=== PATIENT | male | born 1960 | race Caucasian/White ===

== ENCOUNTER 2020-04-20 07:45 | Day surgery (SDC) | payer OTHER, SELFPAY ==
--- NOTE | 2020-04-19 10:14 | HO.ANESPROP2 ---
Documented by User: Tali Pitts 04/19/20 10:14 HPI - Anesthesia Eval Consult details Narrative: 60yo M for Upper Endoscopy and Colonoscopy [facility] Past Medical History Medical History Diabetes Elevated liver function tests GERD (gastroesophageal reflux disease) History of alcohol abuse Surgical History Surgical History Hx of colonoscopy Social History Social History Smoking Status: Current some day smoker Use of substances other than those prescribed or required for medical reasons: Yes Substance Use Frequency: Daily Advance Directives: No Advance Directives Information Provided: No Meds Allergies Allergy/AdvReac Type Severity Reaction Status Date / Time metformin AdvReac Diarrhea Verified 04/13/20 15:06 steroids AdvReac Agitated Uncoded 04/13/20 15:06 Home Medications Medication Instructions Recorded Confirmed Type famotidine 20 mg PO BID 04/13/20 04/13/20 History folic acid 1 mg PO DAILY 04/13/20 04/13/20 History rosuvastatin 20 mg PO DAILY 04/13/20 04/13/20 History thiamine HCl (vitamin B1) 100 mg PO DAILY 04/13/20 04/13/20 History Exam Exam Date and Time: April 19, 2020 1014 Assessment and Plan Assessment Anesthesia Assessment: Chart Reviewed Documented by User: Donaldo Nelson 04/20/20 08:42 [facility] Past Medical History Medical History Diabetes Elevated liver function tests GERD (gastroesophageal reflux disease) History of alcohol abuse Surgical History Surgical History Hx of colonoscopy Social History Social History Smoking Status: Current some day smoker Use of substances other than those prescribed or required for medical reasons: Yes Substance Use Frequency: Daily Advance Directives: No Advance Directives Information Provided: No Meds Allergies Allergy/AdvReac Type Severity Reaction Status Date / Time metformin AdvReac Diarrhea Verified 04/13/20 15:06 steroids AdvReac Agitated Uncoded 04/13/20 15:06 Home Medications Medication Instructions Recorded Confirmed Type famotidine 20 mg PO BID 04/13/20 04/13/20 History folic acid 1 mg PO DAILY 04/13/20 04/13/20 History rosuvastatin 20 mg PO DAILY 04/13/20 04/13/20 History thiamine HCl (vitamin B1) 100 mg PO DAILY 04/13/20 04/13/20 History Exam Airway Mallampati Class: II TM Dist: >3cm Neck ROM: Full Denture: Upper and Lower Heart: [id number] Lungs: cta b/l Assessment and Plan Assessment Anesthesia Assessment: Anesthesia Plan Discussed, Smoking Cess. Discussed and PAT Visit Final Anesthetic Review NPO: Yes ASA Class: III Final Preanesthetic Review: No Changes in Pt Med Stat, Meds/Allgs Chart Reviewed, Consent Obtained/Reviewed and Anes Risks/Benef Reviewed Patient Risk: Intermediate Procedure Risk: Low Assessment/Block/Sedation in SS: Assess/Block/Sedation-SS Anesthetic Plan Anesthetic Plan: MAC:
[2020-04-20 07:56] VITALS: BP 112/67; PULSE 79; RESP 18; TEMP 36.5; O2SAT 98; BMI 21.2
[2020-04-20] MEDS: Lactated Ringers 1,000 ML 100 ML IVCONT (08:07)
[2020-04-20 08:14] LABS: Glucose, Whole Blood 131 mg/dL (60-115)
--- NOTE | 2020-04-20 08:36 | MHC.SHP ---
Pre-Procedural Eval Section A The patient is an INPATIENT: No Changes since office visit: No Cold of Flu in the past 2 weeks, No New Medical Problems, No Changes in Medication and No Patient answered all questions The History & Physical has been completed within 30 days and I have reviewed it.: Yes Section B Chief Complaint: reflux disease with esophagitis, Allergies: Allergies Allergy/AdvReac Type Severity Reaction Status Date / Time metformin AdvReac Diarrhea Verified 04/13/20 15:06 steroids AdvReac Agitated Uncoded 04/13/20 15:06 Plan Patient has been examined and remains a candidate for the planned procedure
[2020-04-20 10:19] VITALS: BP 85/85; PULSE 73; RESP 12; TEMP 36.4; O2SAT 97
[2020-04-20 10:35] VITALS: BP 88/56; PULSE 58; RESP 14; TEMP 36.4; O2SAT 95
--- NOTE | 2020-04-20 10:49 | OP_ITS ---
SURGEON: Brooks Gonzalez MD INDICATIONS: 1. Gastroesophageal reflux disease. 2. Prior history of adenomatous colon polyps. PREOPERATIVE DIAGNOSIS: POSTOPERATIVE DIAGNOSIS: PROCEDURE PERFORMED: ESTIMATED BLOOD LOSS: COMPLICATIONS: ANESTHESIA: Monitored anesthesia care. ASSISTANTS: SPECIMENS: PROCEDURES PERFORMED: 1. Upper endoscopy with biopsy. 2. Colonoscopy to the terminal ileum with snare polypectomy. DESCRIPTION OF PROCEDURE: History and physical performed. The risks and benefits of the procedure were explained to the patient. Informed consent was obtained. The patient was placed in the left lateral decubitus position. The Olympus video gastroscope was introduced into the esophagus, stomach, and duodenum. Examination was performed. The scope was removed and he was repositioned for colonoscopy. A digital rectal exam was performed and was found to be normal. The Olympus pediatric video colonoscope was introduced into the rectum and advanced to the cecum without difficulty. The cecum was identified by transillumination, palpation, and identification of ileocecal valve. Examination was performed and the scope was removed. He tolerated both procedures well and was returned to the recovery area in stable condition. FINDINGS: UPPER ENDOSCOPY: Esophagus: The esophagus was normal. The EG junction was biopsied. Stomach: The stomach showed no evidence of masses or ulcers. There was antral gastritis with erythema and edema, but no ulceration. Biopsies were obtained from the antrum. Duodenum: The bulb and second portion were normal. Biopsies were obtained from the EG junction. COLONOSCOPY: The terminal ileum showed nonspecific mild ileitis. The visualized colonic mucosa was normal. At 60 cm, there was an 8 mm polyp, which was snared and recovered via suction. There was mild diverticulosis. The previously identified polyp sites were clear at the site of Kalani ink injection in the splenic flexure with no evidence of recurrent adenomas. Retroflexed examination showed small internal hemorrhoids. IMPRESSION: 1. Gastritis. 2. Colon polyp. RECOMMENDATIONS: Follow up the biopsy results. MD VLADISLAV Briseno/NEETA / [phone]
[2020-04-20 10:51] VITALS: BP 109/68; PULSE 65; RESP 20; TEMP 36.4; O2SAT 97
--- NOTE | 2020-04-20 11:12 | PM.OP ---
Brief Operative Note Date of Service: 04/20/20 Pre-op diagnosis: gerd, hx polyps Post-op diagnosis: same (gastritis, colon polyp) Procedure: egd, colonoscopy Surgeon: Brooks Gonzalez Anesthesia: MAC Estimated blood loss (mL): 5 Pathology: none sent (antrum and egj biopsies, polyp 60 cm) Condition: stable Disposition: PACU
--- NOTE | 2020-04-20 11:15 | HO.POSTANES ---
Post Anesthesia Evaluation Post Anesthesia Evaluation Vital Signs: Vital Signs Temp Pulse Resp BP Pulse Ox 04/20/20 10:51 97.6 F 65 20 109/68 97 04/20/20 10:35 97.6 F 58 14 88/56 L 95 04/20/20 10:19 97.6 F 73 12 85/85 L 97 04/20/20 07:56 97.7 F 79 18 112/67 98 Anesthesia: Monitored Mental Status: Awake Pain Control: Satisfactory Nausea/Vomiting: None Hydration: Adequate Anesthesia-Related Issues: No Anes. Related Issues
== END 2020-04-20 11:24 | disposition home or self-care (01) ==
PROVIDERS: Visit Provider Internal Medicine Gastroenterology
PROC: (CPT 43239; principal; 2020-04-20 08:30)
DX: K21.00 Gastro-esophageal reflux disease with esophagitis, without bleeding (principal); K29.70 Gastritis, unspecified, without bleeding; K63.5 Polyp of colon; Z86.010 Personal history of colon polyps; E11.9 Type 2 diabetes mellitus without complications
CPT/HCPCS: 43239; 45385; 82947; 88305; 88342; J2250; J3010

== ENCOUNTER → 2021-03-03 12:47 | Outpatient (BNVA) | payer OTHER, SELFPAY | PROVIDERS: PCP Internal Medicine Endocrinology, Diabetes & Metabolism; Visit Provider Surgery | DX: D17.0 Benign lipomatous neoplasm of skin and subcutaneous tissue of head, face and neck (principal); E11.9 Type 2 diabetes mellitus without complications; R94.5 Abnormal results of liver function studies; F10.21 Alcohol dependence, in remission; Z88.8 Allergy status to other drugs, medicaments and biological substances | CPT/HCPCS: 99202 ==

== ENCOUNTER 2024-09-09 17:22 | Emergency (ER) | payer OTHER, SELFPAY ==
--- NOTE | ~2024-09-09 | CT_ITS ---
CLINICAL HISTORY: coughing. Pneumonia? CT chest without IV contrast. COMPARISON: None FINDINGS: Visualized thyroid is unremarkable. No supraclavicular or axillary lymphadenopathy. Ascending aorta and main pulmonary artery are normal in caliber. No pericardial effusion. Coronary artery calcifications present within the LAD. Aortic annular calcifications. Normal esophagus. No mediastinal lymphadenopathy. No pleural effusion. Linear atelectasis versus scarring within the lingula. Gpbo-px-xwhrnhac upper lobe predominant centrilobular emphysema. Trachea and central airways are clear. Mild bronchial wall thickening. Calcified granuloma in the right lower lobe. Hepatic steatosis. No acute fracture or suspicious osseous abnormality. IMPRESSION: 1. Mild diffuse bronchial wall thickening can be associated with an infectious or inflammatory bronchitis. 2. Zovd-st-ynqlizlc emphysema. 3. Hepatic steatosis. This document has been electronically signed by: William Colorado MD on 09/09/2024 19:32:45
--- NOTE | 2024-09-09 17:29 | ECG_ITS ---
Test Reason : SOB Blood Pressure : */* mmHG Vent. Rate : 96 BPM Atrial Rate : 96 BPM P-R Int : 132 ms QRS Dur : 84 ms QT Int : 348 ms P-R-T Axes : 70 -2 62 degrees QTcB Int : 439 ms Normal sinus rhythm Possible Inferior infarct , age undetermined ST & T wave abnormality, consider anterior ischemia Abnormal ECG When compared with ECG of 01-Aug-2004 13:20, Vent. rate has increased by [address] now depressed in Anterior leads T wave inversion now evident in Anterior leads Referred By: Aba Avila Electronically Signed By: VENU BANUELOS
[2024-09-09 17:40] VITALS: BP 134/80; PULSE 105; RESP 20; TEMP 36.6; O2SAT 96; BMI 21.3
--- NOTE | 2024-09-09 17:44 | ED_ITS ---
HPI - General Adult General Chief complaint: Dyspnea Stated complaint: SOB/SPO2 84% Time Seen by Provider: 09/09/24 22:19 Source: patient and family Mode of arrival: ambulatory Limitations: no limitations History of Present Illness ED Provider: DR. Hanson HPI narrative: 64-year-old male walked into our emergency department for evaluation of few days of cough with clear sputum, no fever, no chills, patient has a long history of cigarette smoking with a no known lung disease, no fever, no chills, no exposure to sick contacts, no recent travel, no lower extremity swelling or tenderness, patient in the ED feels no shortness of breath, O2 sat is within normal.. Patient admitted to drinking alcohol on a daily basis, LFTs was found to be high patient is declining ultrasound of the abdomen for further evaluation. Related Data Home Medications ?Medication ?Instructions ?Recorded ?Confirmed famotidine 20 mg tablet 20 mg PO BID 04/13/20 04/13/20 folic acid 1 mg tablet 1 mg PO DAILY 04/13/20 04/13/20 rosuvastatin 20 mg tablet 20 mg PO DAILY 04/13/20 04/13/20 thiamine HCl (vitamin B1) 100 mg 100 mg PO DAILY 04/13/20 04/13/20 tablet Previous Rx's ?Medication ?Instructions ?Recorded azithromycin 250 mg tablet See Rx Instructions PO .COMPLEX #6 09/09/24 (Zithromax Z-Mitesh) tabs Allergies Allergy/AdvReac Type Severity Reaction Status Date / Time metformin AdvReac Diarrhea Verified 09/09/24 17:42 steroids AdvReac Agitated Uncoded 04/13/20 15:06 Review of Systems 2 Review of Systems: All other systems are reviewed and are negative Constitutional: Reports as per HPI and Reports no additional constitutional complaints Eyes: Reports as per HPI and Reports no additional eye complaints Reports system reviewed and no additional complaints, except as documented Cardiovascular: Reports as per HPI and Reports no additional cardiovascular complaints Respiratory: Reports as per HPI and Reports no additional respiratory complaints Gastrointestinal: Reports as per HPI and Reports no additional gastrointestinal complaints Genitourinary: Reports no additional female genitourinary complaints Musculoskeletal: Reports no additional musculoskeletal complaints Skin/Breast: Reports system reviewed and no additional complaints, except as docu Psychiatric: Reports no additional psychiatric complaints Endocrine: Reports no additional endocrine complaints Hematologic/Lymphatic: Reports no additional hematologic/lymphatic complaints Allergic/Immunologic: Reports no additional allergic/immunologic complaints Reports system reviewed and no additional complaints, except as documented and Reports Abnormal speech present [facility] Past Medical History Medical History GERD (gastroesophageal reflux disease) Elevated liver function tests History of alcohol abuse Diabetes Surgical History History of endoscopy Hx of colonoscopy Social History Social History Advance Directives: No Advance Directives Information Provided: No Physical Exam ED Vital Signs: Vital Signs - 24 hr 09/09/24 17:40 09/09/24 21:25 09/09/24 22:29 Temperature 97.8 F 98.2 F 98.4 F Pulse Rate 105 H 90 98 Respiratory Rate 20 18 20 Blood Pressure 134/80 124/87 128/80 Pulse Oximetry 96 96 97 Oxygen Delivery Method Room Air Room Air Room Air 09/09/24 22:48 Temperature 98.4 F Pulse Rate 98 Respiratory Rate 20 Blood Pressure 128/80 Pulse Oximetry 97 Oxygen Delivery Method Room Air BMI result Body Mass Index 21.3 Vital signs have been reviewed and appear to be correct. Blood pressure elevated. Heart rate normal. Respiratory rate normal. Temperature normal. Oxygen saturation normal. Appearance: Alert. Oriented X3. No acute distress. Head: Normal external exam. Normocephalic. Atraumatic. No Pratt signs noted. No raccoon eyes noted Eyes: PERRLA. EOMI. Conjunctiva and sclera normal. Eyelids normal. ENT: TM's Normal. Pharynx normal. Uvula midline. Moist mucous membranes. No trismus noted. No drooling noted. No muffled voice noted. Neck: Normal inspection. Neck supple. FROM. No adenopathy. Thyroid Normal. No meningeal signs. No neck mass noted. CVS: Normal heart rate and rhythm. Heart sound normal. No murmurs noted. Pulses normal throughout. Respiratory: No respiratory distress. Painless inspiration. Breath sounds normal. No wheezes/rales/rhonchi noted. Chest nontender. No accessory muscle usage noted or decreased air movement noted. Abdomen: Soft and nontender. Bowel sounds normal in all 4 quadrants. No distention noted. No organomegaly noted. No visible injury noted. Back: No CVA tenderness. Full range of motion noted. Skin: Skin warm and dry. Normal skin color. Normal skin turgor. No rashes/lesions/lacerations noted. Extremities: No lower extremity edema. Extremities exhibit normal range of motion. Extremities nontender. Neuro: Oriented X 3. Cranial nerve exam: II-XII are grossly intact No motor deficit. No sensory deficit. Reflexes normal. Course Course Course Narrative: RME: 54-year-old male presents to ED for coughing, chest pain, shortness of breath for the past couple of days. Patient is a smoker. Patient is not hypoxic. Vital signs stable. Labs EKG chest x-ray ordered Reevaluation(s) Reevaluation #1: History of cigarette smoking for 4 years, drinking alcohol on daily basis. CT of the chest is consistent with infectious versus inflammatory bronchitis otherwise no definitive lung infiltrate. Mild to moderate emphysema and hepatic steatosis. Chronic elevation of LFTs probably secondary to alcohol use patient is refusing hepatic ultrasound in the emergency department. Mild hyponatremia. Time: 22:35 Medical Decision Making Differential Diagnosis Differential Diagnoses: The differential diagnosis associated with the presentation includes (Pneumonia, pneumothorax, pleural effusion, bronchitis, pulmonary embolism, ACS, alcoholic hepatitis, anemia, electrolyte derangement.) Admission/Observation Consideration of admission/observation: Escalation of care including admission/observation considered Lab Data MDM Lab Attestation statement: I reviewed the patient's lab results. 09/09/24 17:56 09/09/24 17:56 Labs: Lab Results 09/09/24 09/09/24 Range/Units 17:55 17:56 WBC 6.9 (4.8-10.8) X10*3/uL RBC 4.38 L (4.60-5.80) X10*6/uL Hgb 16.6 (14.0-18.0) g/dl Hct 45.2 (42.0-52.0) % MCV 103.2 H (80.0-98.0) fL MCH 37.9 H (27.0-33.0) pg MCHC 36.7 H (31.0-36.0) g/dl RDW 12.9 (11.0-16.0) % Plt Count 176 (160-400) X10*3/uL MPV 10.4 (9.4-12.4) fL Immature Gran % (Auto) 0.4 (0.0-0.4) % Neut % (Auto) 68.3 (45-73) % Lymph % (Auto) 22.5 (20-40) % [place] % (Auto) 7.7 (2-11) % Eos % (Auto) 0.4 (0-4) % Baso % (Auto) 0.7 (0-2) % Lymph # (Auto) 1.6 (1.2-4.9) X10*3/uL [place] # (Auto) 0.5 (0.1-1.2) X10*3/uL Eos # (Auto) 0.0 (0.0-0.4) X10*3/uL Baso # (Auto) 0.1 (0.0-0.2) X10*3/uL Abs Immat Gran (auto) 0.03 (0.00-0.03) X10*3/uL Absolute Neuts (auto) 4.7 (2.0-8.3) x10*3/uL Absolute Nucleated RBC 0.000 (0.0-0.012) X10*3/uL Nucleated RBC % (auto) 0.0 (0.0-0.2) /100WBC PT 10.7 L (10.9-12.4) SEC INR 0.9 (0.9-1.1) APTT 30.2 (26.0-36.8) SEC Sodium 130 L (135-145) mmol/L Potassium 4.2 (3.3-5.1) mmol/L Chloride 93 L (96-108) mmol/L Carbon Dioxide 27 (22-29) mmol/L Anion Gap 14 (12-20) BUN 8 L (9-16) mg/dL Creatinine 0.87 (0.5-1.4) mg/dL Estim Creat Clear Calc 86.4 Estimated GFR > 60 Random Glucose 146 H (60-115) mg/dL Calcium 9.4 (8.4-10.2) mg/dL Total Bilirubin 2.2 H (0.0-1.0) mg/dL AST 146 H (5-37) U/L ALT 67 H (0-40) U/L Alkaline Phosphatase 122 H (39-117) U/L Troponin I High Sens < 2.7 (<3.5-35.0) ng/L B-Natriuretic Peptide 36 (<100) pg/mL Total Protein 7.3 (6.5-8.0) g/dL Albumin 4.0 (3.5-5.0) g/dL Influenza Type A (PCR) NEGATIVE (Negative) Influenza Type B (PCR) NEGATIVE (Negative) RSV RNA Qual (PCR) NEGATIVE (Negative) SARS-CoV-2 RNA (RT-PCR) NEGATIVE (Negative) Independent Interpretation I performed an independent interpretation of an: CT Scan (Chest:. Mild diffuse bronchial wall thickening can be associated with an infectious or inflammatory bronchitis. 2. Feou-bm-dpumlrbg emphysema. 3. Hepatic steatosis.) Radiology Impression Discussion of test interpretation with radiology: I have reviewed the radiologist's reading. Discharge Plan Discharge Clinical Impression: Acute bronchitis, Elevated liver function tests Patient Disposition: Home, Self-Care Instructions: Acute Bronchitis (ED) Prescriptions: New azithromycin [Zithromax Z-Mitesh] 250 mg tablet See Rx Instructions .ROUTE .COMPLEX Qty: 6 0RF Rx Instructions: For 250 mg dose pack: take 500 mg today (day 1), then 250 mg for 4 days (days 2-5) No Action thiamine HCl (vitamin B1) 100 mg Tablet 100 mg PO DAILY famotidine 20 mg Tablet 20 mg PO BID folic acid 1 mg Tablet 1 mg PO DAILY rosuvastatin 20 mg Tablet 20 mg PO DAILY Referrals: Herb Serrano MD [Primary Care Provider] - Interventions: ED Discharge Assessment Last Done: 09/09/24 22:48 Discharge Date/Time: 09/09/24 22:48 Print Language: Lao
[2024-09-09 18:17] LABS: MANUAL DIFF FLAG NO
[2024-09-09 18:21] LABS: Basophils Absolute Auto 0.1 X10*3/uL (0.0-0.2); Basophils Percent Auto 0.7 % (0-2); Eosinophils Percent Auto 0.4 % (0-4); Hematocrit 45.2 % (42.0-52.0); Hemoglobin 16.6 g/dl (14.0-18.0); Imm Gran Abs Auto 0.03 X10*3/uL (0.00-0.03); Imm Gran Pct Auto 0.4 % (0.0-0.4); Lymphocytes Absolute Auto 1.6 X10*3/uL (1.2-4.9); Lymphocytes Percent Auto 22.5 % (20-40); Mean Corpuscular HGB Conc 36.7 g/dl (31.0-36.0); Mean Corpuscular Hemoglobin 37.9 pg (27.0-33.0); Mean Corpuscular Volume 103.2 fL (80.0-98.0); Mean Platelet Volume 10.4 fL (9.4-12.4); Monocytes Absolute Auto 0.5 X10*3/uL (0.1-1.2); Monocytes Percent Auto 7.7 % (2-11); Neutrophils Absolute Auto 4.7 x10*3/uL (2.0-8.3); Neutrophils Percent Auto 68.3 % (45-73); Platelet Count 176 X10*3/uL (160-400); Red Blood Count 4.38 X10*6/uL (4.60-5.80); Red Cell Distribution Width 12.9 % (11.0-16.0); White Blood Count 6.9 X10*3/uL (4.8-10.8)
[2024-09-09 18:39] LABS: B Type Natriuretic Peptide 36 pg/mL (<100)
[2024-09-09 18:45] LABS: Alanine Aminotransferase 67 U/L (0-40); Anion Gap 14 (12-20); Aspartate Amino Transferase 146 U/L (5-37); Bilirubin Total 2.2 mg/dL (0.0-1.0); Blood Urea Nitrogen 8 mg/dL (9-16); Calcium 9.4 mg/dL (8.4-10.2); Carbon Dioxide 27 mmol/L (22-29); Chloride 93 mmol/L (96-108); Creatinine Clr Calc Pharmacy 86.4; Estimated Glomerular Filt Rate > 60; Glucose Random 146 mg/dL (60-115); Potassium 4.2 mmol/L (3.3-5.1); Sodium 130 mmol/L (135-145); Total Protein 7.3 g/dL (6.5-8.0)
[2024-09-09 18:46] LABS: Troponin-I High Sensitivity < 2.7 ng/L (<3.5-35.0)
[2024-09-09 18:55] LABS: Influenza A PCR NEGATIVE (Negative); Influenza B PCR NEGATIVE (Negative); Resp Syncy Virus RNA Qual PCR NEGATIVE (Negative); SARS COV2 PCR INHOUSE NEGATIVE (Negative)
[2024-09-09 19:01] LABS: INTERNATIONAL NORM RATIO 0.9 (0.9-1.1); Prothrombin Time 10.7 SEC (10.9-12.4)
[2024-09-09 19:03] LABS: Partial Thromboplastin Time 30.2 SEC (26.0-36.8)
[2024-09-09 19:25] LABS: Alkaline Phosphatase 122 U/L (39-117)
[2024-09-09 21:25] VITALS: BP 124/87; PULSE 90; RESP 18; TEMP 36.8; O2SAT 96
[2024-09-09 22:29] VITALS: BP 128/80; PULSE 98; RESP 20; TEMP 36.9; O2SAT 97
[2024-09-09 22:48] VITALS: BP 128/80; PULSE 98; RESP 20; TEMP 36.9; O2SAT 97
== END 2024-09-09 22:48 | disposition home or self-care (01) ==
PROVIDERS: Physician Assistant; Emergency Provider Emergency Medicine; PCP Internal Medicine Endocrinology, Diabetes & Metabolism
DX: J40 Bronchitis, not specified as acute or chronic (principal); R06.02 Shortness of breath; R94.31 Abnormal electrocardiogram [ECG] [EKG]; Z03.818 Encounter for observation for suspected exposure to other biological agents ruled out; Z87.891 Personal history of nicotine dependence; Z79.899 Other long term (current) drug therapy
CPT/HCPCS: 0241U; 36415; 71250; 80053; 83880; 84484; 85025; 85610; 85730; 93005; 99283; 99284

== ENCOUNTER → 2024-09-09 17:29 | Outpatient (BNV) | payer OTHER, SELFPAY | PROVIDERS: Emergency Provider Emergency Medicine; PCP Internal Medicine Endocrinology, Diabetes & Metabolism; Visit Provider Internal Medicine | DX: R94.31 Abnormal electrocardiogram [ECG] [EKG] (principal); R06.02 Shortness of breath | CPT/HCPCS: 93010 ==

== ENCOUNTER → 2024-09-09 17:43 | Outpatient (BNV) | payer OTHER, SELFPAY | PROVIDERS: PCP Internal Medicine Endocrinology, Diabetes & Metabolism; Visit Provider Radiology Diagnostic Radiology | DX: J20.9 Acute bronchitis, unspecified (principal); J43.9 Emphysema, unspecified; K76.0 Fatty (change of) liver, not elsewhere classified | CPT/HCPCS: 71250 ==

== ENCOUNTER 2024-11-05 14:01 | Outpatient (AMB) | payer OTHER, SELFPAY ==
--- NOTE | 2024-11-05 14:02 | A.OFFVIS_ITS ---
Vital Signs 11/05/24 14:10 Height 6 ft 1 in Weight 167 lb BMI 22.0 BP 126/80 Blood Pressure Location Rt brachial Position Sitting Pulse 94 Intake Visit Reasons: lipoma posterier base of neck Intake Note: Patient referred by Herb Serrano [employer] [facility] for lipoma on posterior neck. Present for 4yrs. Patient c/o: enlarging, numbness that spreads from Rt shoulder down to hand. US NECK~ 09-30-2024 Charting Clerk Required: No Accompanied by: Caryn daughter Allergies metformin Adverse Reaction (Verified 11/05/24 14:07) Diarrhea steroids Adverse Reaction (Uncoded 11/05/24 14:07) Agitated Medication List - Last Reconciled 11/05/24 by Juaquin Dailey MD folic acid 1 mg PO DAILY HPI HPI lipoma posterier base of neck: Details: 64-year-old male here for a lipoma of the posterior neck. He has had this for over 4 years. He says that he had been in this office for years ago for this. At that time, he felt that the lipoma was not bothering him so he did not proceed with excision He says that recently has been having this tingling sensation in his hand and fingers on the right side. He feels that this has because of the lipoma. He does mentioned that this may have increased in size. [facility] Medical History GERD (gastroesophageal reflux disease) Elevated liver function tests History of alcohol abuse Diabetes Surgical History History of endoscopy Hx of colonoscopy Social History Patient Tobacco Use Status: Former Tobacco user Review of Systems Const Denies chills and Denies fever(s) Card Denies chest pain, Denies dyspnea and Denies dyspnea on exertion Resp Denies cough, Denies dyspnea and Denies dyspnea on exertion GI Denies hematochezia and Denies change in bowel habits Denies hematuria and Denies difficulty urinating Musc Denies back pain and Denies limited range of motion Neuro Denies focal weakness and Denies convulsions Psych Denies depression and Denies mood swings Physical Exam Const General: comfortable and no acute distress Orientation/consciousness: patient oriented x3 Neck Other: Lipomatous mass, left, on the posterior neck at the level of the C7 spinal process , about 2.5 cm, soft, mobile Neck: Yes no lymphadenopathy Resp Auscultation: clear to auscultation bilaterally Cardio Rhythm: regular rhythm GI Palpation (GI): Soft to palpation, nontender and no guarding Neuro General: patient oriented x3 Assessment & Plan Assessment & Plan (1) Lipoma of neck: Code(s): D17.0 - Benign lipomatous neoplasm of skin and subcutaneous tissue of head, face and neck Category: Medical Plan: He has this lipomatous mass on the posterior neck on top of his C7 spine prominence. I explained to him the technique of excision which can be done under local anesthesia. However, I told him that there is no guarantee that his tingling and discomfort on the fingers as well as his hand we will resolve with this as the lipoma is subcutaneous in location and not expected to affect nerves on the area He does not want to proceed with excision for now. I did talk to his daughter about this as well and I told them that if the want to proceed, we will accommodate them in the office I also asked them to send me a copy of [facility]. Coding Level of Care Code New Pt Level 3 (24747) Diagnoses Lipoma of neck D17.0
[2024-11-05 14:10] VITALS: BP 126/80; PULSE 94; BMI 22.0
== END 2024-11-05 14:21 | disposition home or self-care (01) ==
LOC: HO.HGS 14:01
PROVIDERS: PCP Internal Medicine Endocrinology, Diabetes & Metabolism; Visit Provider Surgery
DX: D17.0 Benign lipomatous neoplasm of skin and subcutaneous tissue of head, face and neck (principal)
CPT/HCPCS: 99203

== ENCOUNTER → 2024-11-05 14:01 | Outpatient (BNVA) | payer OTHER, SELFPAY | PROVIDERS: PCP Internal Medicine Endocrinology, Diabetes & Metabolism; Visit Provider Surgery | DX: D17.0 Benign lipomatous neoplasm of skin and subcutaneous tissue of head, face and neck (principal) | CPT/HCPCS: 99202 ==